=== PATIENT | female | born 1950 ===

== ENCOUNTER 2023-10-10 18:47 | Emergency (ER) | payer MEDICARE, MEDICAID, SELFPAY ==
[2023-10-10 18:54] VITALS: BP 236/105; PULSE 76; O2SAT 97
[2023-10-10 18:56] VITALS: BP 236/105; PULSE 74; RESP 18; TEMP 36.8; O2SAT 97; BMI 24.3
[2023-10-10 19:00] VITALS: BP 189/83; PULSE 75; O2SAT 97
[2023-10-10 19:06] VITALS: BP 200/91; PULSE 74; O2SAT 99
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
== END 2023-10-10 19:28 | disposition home or self-care (01) ==
PROVIDERS: Emergency Provider Emergency Medicine
DX: S00.83XA Contusion of other part of head, initial encounter (principal); V89.2XXA Person injured in unspecified motor-vehicle accident, traffic, initial encounter
CPT/HCPCS: 99283